=== PATIENT | female | born 1975 | race African-American/Black ===

== ENCOUNTER → 2018-11-25 | Outpatient (CLI) | payer BC ==
[~2018-11-25] MED LIST: FEROSUL325 MG PO; IRON; IRON325 M1 PO; MOTRIN800 MG PO; PRENATAL1 TA1 PO
== END ==
LOC: MC.RAD 09:45
DX: Z12.31 Encounter for screening mammogram for malignant neoplasm of breast (principal)

== ENCOUNTER → 2018-11-25 | Outpatient (CLI) | payer BC | LOC: MC.RAD 10:15 | DX: Z12.31 Encounter for screening mammogram for malignant neoplasm of breast (principal) ==

== ENCOUNTER → 2018-12-05 | Outpatient (CLI) | payer BC | LOC: MC.RAD 08:15 | DX: N64.89 Other specified disorders of breast (principal) | CPT/HCPCS: G0279 ==

== ENCOUNTER → 2019-04-15 | Outpatient (CLI) | payer BC | LOC: MC.RAD 14:00 | DX: N63.20 Unspecified lump in the left breast, unspecified quadrant (principal) | CPT/HCPCS: G0279 ==

== ENCOUNTER → 2020-06-28 | Outpatient (CLI) | payer BC | LOC: COL.RAD 12:00 | DX: R59.0 Localized enlarged lymph nodes (principal) ==

== ENCOUNTER → 2022-05-23 | Outpatient (CLI) | payer BC | LOC: MC.RAD 06:55 | DX: Z12.31 Encounter for screening mammogram for malignant neoplasm of breast (principal) ==